=== PATIENT | male | born 1980 | race Caucasian/White ===

== ENCOUNTER 2019-10-23 20:23 | Emergency (ER) | payer OTHER ==
[2019-10-23 20:28] VITALS: BP 137/79; PULSE 95; RESP 16; TEMP 98.2
[2019-10-23] MEDS ORDERED: PENICILLIN VK 500MG STARTER 4 TAB BTL PO STA (20:39)
--- NOTE | 2019-10-23 20:42 | ED ---
ENT HPI - General Chief complaint: Dental/Oral Stated complaint: Tooth pain Time Seen by Provider: 10/23/19 20:28 Source: patient, RN notes reviewed, old records reviewed Mode of arrival: ambulatory Limitations: no limitations - History of Present Illness Initial comments: Patient's a pleasant 39-year-old male presents emergency room today with right upper dental pain. Patient reports he has a broken tooth and is concerned there is no swelling around the gum and causing pain into the upper jaw and he is worried for infection. He states that he does have an upcoming appointment with the dentist on Friday to have the tooth removed. He states worsening pain mainly concerned that there is developing infection and Patient wanted to start antibiotics as soon as possible. He denies any trismus. He denies any foul discharge within the mouth. He denies any visual changes hearing changes or sense of loss of taste. - Related Data Previous Rx's Medication Instructions Recorded Sulfamethoxazole/Trimethoprim 1 each PO Q12H #20 tab 12/06/13 [Bactrim DS 800-160 mg] traMADol HCl [Ultram] 50 mg PO Q6H PRN #20 tab 12/06/13 Penicillin V Potassium [Pen Vee K] 500 mg PO QID #40 tablet 10/23/19 Allergies Allergy/AdvReac Type Severity Reaction Status Date / Time No Known Allergies Allergy Verified 10/23/19 20:28 Review of Systems ROS Statement: Those systems with pertinent positive or pertinent negative responses have been documented in the HPI. ROS Other: All systems not noted in ROS Statement are negative. Past Medical History Past Medical History: No Reported History History of Any Multi-Drug Resistant Organisms: None Reported Past Surgical History: No Surgical Hx Reported Past Psychological History: No Psychological Hx Reported Smoking Status: Current some day smoker Past Alcohol Use History: Rare Past Drug Use History: None Reported General Exam - General Exam Comments Initial Comments: Alert and oriented 39-year-old male. No acute distress. Limitations: no limitations General appearance: alert, in no apparent distress Head exam: Present: atraumatic, normocephalic, normal inspection Eye exam: Present: normal appearance, PERRL, EOMI. Absent: scleral icterus, conjunctival injection, periorbital swelling ENT exam: Present: normal exam, mucous membranes moist. Absent: normal oropharynx (broken tooth 4, with gingival erythema, no drainage or palpable abscess) Neck exam: Present: normal inspection. Absent: tenderness, meningismus, lymphadenopathy Respiratory exam: Present: normal lung sounds bilaterally. Absent: respiratory distress, wheezes, rales, rhonchi, stridor Cardiovascular Exam: Present: regular rate, normal rhythm, normal heart sounds. Absent: systolic murmur, diastolic murmur, rubs, gallop, clicks GI/Abdominal exam: Present: soft, normal bowel sounds. Absent: distended, tenderness, guarding, rebound, rigid Neurological exam: Present: alert, oriented X3, CN II-XII intact Psychiatric exam: Present: normal affect, normal mood Skin exam: Present: warm, dry, intact, normal color. Absent: rash Course Vital Signs 10/23/19 20:25 Temperature 98.2 F Pulse Rate 95 Respiratory 16 Rate Blood Pressure 137/79 O2 Sat by Pulse 97 Oximetry Medical Decision Making - Medical Decision Making This patient's a pleasant 39-year-old male presents return today for right upper dental pain after prevent to this and concern for swelling and possible infection. He does have an appointment scheduled Friday to have the tooth removed. He states it is not very painful and unable tolerate the pain with Motrin and Tylenol. Discussed starting the Patient on penicillin. There is no evidence of drainable abscess at this time. Discussed return parameters. Disposition Clinical Impression: Pain, dental, Broken tooth Disposition: HOME SELF-CARE Condition: Good Instructions (If sedation given, give patient instructions): Toothache (ED) Additional Instructions: [facility] [address] [address] [phone] (existing clients only) For new clients: [phone] 1st consult: $50 (includes Xrays) Usually 30% less then private dentist for visits after. [employer] Have to pay $50 for Xrays anmd rest is covered. [phone] Prescriptions: Penicillin V Potassium [Pen Vee K] 500 mg PO QID #40 tablet Is patient prescribed a controlled substance at d/c from ED?: No Referrals: None,Stated [Primary Care Provider] - 1-2 days Time of Disposition: 20:40
== END 2019-10-23 21:10 | disposition home or self-care (01) ==
LOC: EC 20:23
DX: S02.5XXA Fracture of tooth (traumatic), initial encounter for closed fracture (principal); F17.200 Nicotine dependence, unspecified, uncomplicated; X58.XXXA Exposure to other specified factors, initial encounter
CPT/HCPCS: 99283